=== PATIENT | female | born 1990 | race Caucasian/White ===

== ENCOUNTER 2021-04-02 16:10 | Emergency (ER) | payer MEDICAID ==
[~2021-04-02] VITALS: Ht 172.7 cm; Wt 71.2 kg
[~2021-04-02 16:10] MED LIST: CARBAMAZEPINE200 MG PO; FOLIC ACID1 MG PO; LAMOTRIGINE200 MG PO
[2021-04-02] MEDS ORDERED: METHIMAZOLE5 MG PO (19:29)
[2021-04-02] MEDS ORDERED: VENTOLIN HFA18 GM INH (19:29)
[2021-04-02] MEDS ORDERED: ESCITALOPRAM OX10 MG PO (19:29)
[2021-04-02] MEDS ORDERED: WESTAB PLUS TA1 EACH PO (19:29)
[2021-04-02] MEDS ORDERED: BACTRIM DS TAB1 EACH PO (20:01)
[2021-04-02] MEDS ORDERED: ULTRAM50 MG PO (20:01)
[2021-04-02] MEDS ORDERED: CEPHALEXIN500 MG PO (20:01)
== END 2021-04-02 20:14 | disposition home or self-care (01) ==
LOC: ED 16:10
DX: L02.415 Cutaneous abscess of right lower limb (principal); E03.9 Hypothyroidism, unspecified; Z88.5 Allergy status to narcotic agent; Z91.018 Allergy to other foods; Z79.899 Other long term (current) drug therapy
CPT/HCPCS: 10060; 99283-25